=== PATIENT | female | born 1995 | race Caucasian/White ===

== ENCOUNTER 2020-10-08 11:05 | Emergency (ER) | payer OTHER ==
[~2020-10-08] VITALS: Ht 152.4 cm; Wt 61.0 kg
[2020-10-08] MEDS ORDERED: ALBUTEROL (0.083%) 2.5MG/3ML NEB HHN STA (11:25)
[2020-10-08] MEDS ORDERED: IPRATROPIUM BROMIDE (0.02%) 0.5MG/2.5ML NEB HHN STA (11:25)
[2020-10-08] MEDS ORDERED: LORAZEPAM 1MG TABLET PO ONE (11:30)
[2020-10-08 11:49] LABS: BASOPHILS % 0.5 % (0.0-2.0); EOSINOPHILS % 0.4 % (0.0-5.0); HEMATOCRIT. 42.3 % (36.0-48.0); LYMPHOCYTES % 27.5 % (20.0-50.0); MEAN CORPUSCULAR HEMOGLOBIN 30.7 pg (28.0-32.0); MEAN CORPUSCULAR VOLUME 92.7 fL (81.0-99.0); MEAN PLATELET VOLUME 10.2 fl (7.4-10.4); MONOCYTES % 5.2 % (2.0-8.0); NEUTROPHILS % 66.4 % (40.0-76.0); PLATELET 226 x1000/uL (130-400); RED BLOOD CELL COUNT 4.57 mill/uL (4.2-5.4); RED CELL DISTRIBUTION WIDTH 13.1 % (11.6-14.6)
[2020-10-08 11:54] LABS: CHLORIDE 110 mEq/L (98-107)
[2020-10-08 12:06] LABS: HCG SCREEN NEGATIVE
[2020-10-08] MEDS ORDERED: LORA-249 MT (12:44)
[2020-10-08] MEDS ORDERED: ALBU6.7H9 INH (12:44)
[2020-10-08 13:15] VITALS: BP 116/70
== END 2020-10-08 13:28 | disposition home or self-care (01) ==
LOC: ER 11:05
DX: F41.9 Anxiety disorder, unspecified (principal); F12.10 Cannabis abuse, uncomplicated; R06.02 Shortness of breath; J45.909 Unspecified asthma, uncomplicated; Z98.890 Other specified postprocedural states
CPT/HCPCS: 36415; 71045; 80053; 84484; 84703; 85025; 85379; 93005; 94640; 99285; Z7610